=== PATIENT | female | born 1995 | race Caucasian/White ===

== ENCOUNTER 2024-12-17 17:26 | Emergency (ER) | payer OTHER, SELFPAY ==
--- NOTE | 2024-12-17 17:34 | ERPHSYRPT ---
- History of Present Illness Time Seen by Provider: 12/17/24 17:33 Source: patient, family Exam Limitations: no limitations Physician History: This is a 28-year-old white female patient arrives by private vehicle accompanied by the patient's mother secondary to concern of lateral right upper leg infection/abscess. Patient noticed redness on 12/12/2024. It had increased in size and pain. Therefore, patient went to see her primary care provider on 12/16/2024. The patient was placed on doxycycline. Patient stated that she did try to squeeze this area and did get pus out yesterday. However, today there is more tenderness and redness that are outside the line that was drawn around the area of cellulitis. The patient has a history of migraine headaches. Today, she took plain Tylenol at 10 AM and her antibiotic at 10:30 AM. Patient is allergic to Rocephin. Method of Injury: other (No known injury) Quality: sharpness Severity of Pain-Max: moderate Severity of Pain-Current: moderate Lower Extremities Pain: leg: right (Lateral aspect right thigh mid level) Modifying Factors: Improves With: movement (Worsens pain), other (Pain worsened with palpation) Associated Symptoms: none Allergies/Adverse Reactions: ceftriaxone sodium [From Rocephin] Allergy (Verified 12/17/24 17:32) Home Medications: Albuterol Sulfate [Albuterol Sulfate Hfa] 2 inh PO Q46H 12/17/24 [History] Budesonide/Formoterol Fumarate [Symbicort 160-4.5 Mcg Inhaler] 2 inh PO DAILY 12/17/24 [History] Hx Tetanus, Diphtheria Vaccination/Date Given: No Hx Influenza Vaccination/Date Given: Yes Hx Pneumococcal Vaccination/Date Given: No Travel Risk - International Travel Have you traveled outside of the country in past 3 weeks: No - Emerging Infectious Disease Are you exhibiting symptoms associated with any current EIDs: No - Review of Systems Constitutional: No Symptoms Eyes: No Symptoms Ears, Nose, & Throat: No Symptoms Respiratory: No Symptoms Cardiac: No Symptoms Abdominal/Gastrointestinal: No Symptoms Genitourinary Symptoms: No Symptoms Musculoskeletal: No Symptoms Skin: Cellulitis (Lateral right thigh in the area of tenderness) Neurological: No Symptoms Psychological: No Symptoms Endocrine: No Symptoms Hematologic/Lymphatic: No Symptoms Immunological/Allergic: No Symptoms All Other Systems: Reviewed and Negative - Past Medical History Pertinent Past Medical History: Yes Neurological History: No Pertinent History ENT History: No Pertinent History, Other Cardiac History: No Pertinent History Respiratory History: No Pertinent History, Other Endocrine Medical History: No Pertinent History Musculoskeletal History: No Pertinent History GI Medical History: No Pertinent History Female Reproductive Disorders: Other Other Medical History: EAR PROBLEMS (tubes) OVARIAN CYSTS - Past Surgical History Past Surgical History: No Neuro Surgical History: No Pertinent History Cardiac: No Pertinent History Gastrointestinal: No Pertinent History Genitourinary: No Pertinent History Musculoskeletal: No Pertinent History Female Surgical History: No Pertinent History Other Surgical History: T/A. NASALcaud. CYST FROM AXILLA (right) - Female History Hx Last Menstrual Period: 04/2014 - Social History Drug Use: none - Nursing Vital Signs Nursing Vital Signs: Initial Vital Signs Temperature 99 F 12/17/24 17:35 Pulse Rate 90 12/17/24 17:35 Respiratory Rate 24 12/17/24 17:35 Blood Pressure 99/83 12/17/24 17:35 Pain Scale Pain Intensity 8 - Physical Exam General Appearance: no apparent distress, alert, anxiety Eyes, Ears, Nose, Throat Exam: normal ENT inspection, moist mucous membranes Neck Exam: normal inspection, non-tender, supple, full range of motion Cardiovascular/Respiratory Exam: chest non-tender, no respiratory distress Gastrointestinal/Abdominal Exam: non-tender Back Exam: normal inspection, normal range of motion, No CVA tenderness, No vertebral tenderness Hips Exam: bilateral: non-tender, normal inspection, normal range of motion, no evidence of injury Legs Exam: right leg: soft tissue tenderness (Lateral right mid thigh with cellulitis), other (Pain, cellulitis and induration right lateral mid level thigh), left leg: non-tender, normal inspection, normal range of motion, no evidence of injury Knees Exam: bilateral knee: non-tender, normal inspection, normal range of motion, no evidence of injury Ankle Exam: bilateral ankle: non-tender, normal inspection, normal range of motion, no evidence of injury Foot Exam: bilateral foot: non-tender, normal inspection, normal range of motion, no evidence of injury Neuro/Tendon Exam: normal sensation, normal motor functions, normal tendon functions Mental Status Exam: alert, oriented x 3, cooperative Skin Exam: other (Cellulitis with indurated tissue lateral aspect right thigh at approximately the mid level. Underlying abscess likely) SpO2 Interpretation: normal O2 Delivery: Room Air Procedures - Incision and Drainage Time of Procedure: 18:20 Site: Right lateral thigh at the mid level Anesthesia: 1% Lidocaine (7 cc) cc's of anesthesia: other (7) Blade Size: 15 I & D Procedure: betadine prep, culture obtained, irrigated with normal saline, gauze wick placed Results: moderate amount pus - Course Nursing assessment & vital signs reviewed: Yes - Progress Progress: improved, pain not gone completely Progress Note: 12/17/24 18:39 My medical decision making and the assignment of low complexity to this patient's medical issue today is based on review of the patient's past medical history, review the patient's medication list, reviewed patient drug allergy list, history present illness and physical findings on examination. The workup in this patient includes incision and drainage of this area of cellulitis and abscess with culture of the underlying fluid. Differential diagnosis includes but is not limited to cellulitis, indurated tissue, abscess Counseled pt/family regarding: diagnosis, need for follow-up Medical Desision Making - Independent Historian Additional History obtained from: Mother - Diagnostic Testing Diagnostic test were ordered, analyzed, and reviewed by me: Yes - Risk of complications The pt has a mod risk of morbidity or mortality based on: Need for prescription drug management - Departure Departure Disposition: Home Clinical Impression: Abscess of right thigh Condition: Stable Critical Care Time: No Referrals: IRENE ERIC JR [Primary Care Provider] - Follow up/PCP as directed Additional Instructions: Tonight, remove the top dressing then the packing gauze and flushed the site with soapy water. Blot dry or use a hair mixer and then repack as instructed with plain packing gauze. Cover with bandage. Take your antibiotics as prescribed and pain medicine. Return tomorrow, 12/18/2024, for reevaluation. Prescriptions: Hydrocodone/APAP 5/325 [Ridott 5/325 mg] 1 each PO Q6H PRN PRN #10 tablet MDD 4 PRN Reason: Pain
[2024-12-17 18:05] VITALS: TEMP 99
[2024-12-17] MEDS: XYLOCAINE 1% HCL 20 ML MDV IJ ONE (18:25)
[2024-12-17] MEDS ORDERED: XYLOCAINE 1% HCL 20 ML MDV ONE (18:46)
[2024-12-17] MEDS ORDERED: NORCO 5/325 MG ONE (18:49)
[2024-12-17] MEDS: NORCO 5/325 MG PO ONE (18:51)
[2024-12-17 19:12] VITALS: BP 112/61; PULSE 96; RESP 22; O2SAT 98
== END 2024-12-17 19:20 | disposition home or self-care (01) ==
LOC: ED 17:26
DX: L02.415 Cutaneous abscess of right lower limb (principal); Z79.891 Long term (current) use of opiate analgesic; Z79.899 Other long term (current) drug therapy
CPT/HCPCS: 10060; 87070; 87077; 87186; 96372; 99283; A9270-GY

== ENCOUNTER 2024-12-18 16:57 | Emergency (ER) | payer OTHER ==
--- NOTE | 2024-12-18 17:04 | ERPHSYRPT ---
- History of Present Illness Time Seen by Provider: 12/18/24 17:03 Source: patient, family Exam Limitations: no limitations Physician History: This is a 28-year-old overweight white female who presents to the emergency department at the request of me who saw this patient 24 hours ago. She had a right lateral thigh abscess which was incised and drained. She is supposed to be doing dressing changes twice a day but only did once today and we will remove the dressing to evaluate the wound. Patient states there is not as much pain as she had before we performed the incision and drainage yesterday. Patient is on doxycycline. She has not had any fevers. Timing/Duration: day(s) (Overall) Quality: painful Severity: mild Location: extremities (Right lateral mid thigh) Associated Symptoms: denies symptoms Allergies/Adverse Reactions: ceftriaxone sodium [From Rocephin] Allergy (Verified 12/18/24 17:04) Home Medications: Albuterol Sulfate [Albuterol Sulfate Hfa] 2 inh PO Q46H 12/17/24 [History] Budesonide/Formoterol Fumarate [Symbicort 160-4.5 Mcg Inhaler] 2 inh PO DAILY 12/17/24 [History] Doxycycline Hyclate 100 mg [Vibramycin 100 MG] 100 mg PO BID 12/18/24 [History] Hx Tetanus, Diphtheria Vaccination/Date Given: No Hx Influenza Vaccination/Date Given: Yes Hx Pneumococcal Vaccination/Date Given: No Travel Risk - International Travel Have you traveled outside of the country in past 3 weeks: No - Emerging Infectious Disease Are you exhibiting symptoms associated with any current EIDs: No - Review of Systems Constitutional: No Symptoms Eyes: No Symptoms Ears, Nose, & Throat: No Symptoms Respiratory: No Symptoms Cardiac: No Symptoms Abdominal/Gastrointestinal: No Symptoms Genitourinary Symptoms: No Symptoms Musculoskeletal: No Symptoms Skin: Other (Open incision and drainage site is draining) Neurological: No Symptoms Psychological: No Symptoms Endocrine: No Symptoms Hematologic/Lymphatic: No Symptoms Immunological/Allergic: No Symptoms All Other Systems: Reviewed and Negative - Past Medical History Pertinent Past Medical History: Yes Neurological History: No Pertinent History ENT History: No Pertinent History, Other Cardiac History: No Pertinent History Respiratory History: No Pertinent History, Other Endocrine Medical History: No Pertinent History Musculoskeletal History: No Pertinent History GI Medical History: No Pertinent History Female Reproductive Disorders: Other Other Medical History: EAR PROBLEMS (tubes) OVARIAN CYSTS - Past Surgical History Past Surgical History: No Neuro Surgical History: No Pertinent History Cardiac: No Pertinent History Gastrointestinal: No Pertinent History Genitourinary: No Pertinent History Musculoskeletal: No Pertinent History Female Surgical History: No Pertinent History Other Surgical History: T/A. NASALcaud. CYST FROM AXILLA (right) - Female History Hx Last Menstrual Period: 04/2014 - Social History Drug Use: none - Social Determinants of Health Will the patient participate in the screening: Yes Do you worry about a steady place to live?: No In the past 12 months,have you had to go without utilities?: No Transportation Issues: No Has anyone in your support network made you feel unsafe?: No Have you or anyone in your house had to go w/o enough food: No - Nursing Vital Signs Nursing Vital Signs: Initial Vital Signs Temperature 98.4 F 12/18/24 17:10 Pulse Rate 78 12/18/24 17:10 Respiratory Rate 18 12/18/24 17:10 Blood Pressure 114/72 12/18/24 17:10 O2 Sat by Pulse Oximetry 97 12/18/24 17:10 Pain Scale Pain Intensity 4 - Physical Exam General Appearance: no apparent distress, alert Eye Exam: PERRL/EOMI Ears, Nose, Throat Exam: normal ENT inspection, moist mucous membranes Neck Exam: normal inspection, non-tender, supple, full range of motion Respiratory Exam: airway intact, No chest tenderness, No respiratory distress Gastrointestinal/Abdomen Exam: No tenderness Extremity Exam: normal range of motion, pelvis stable, other (The incision and drainage site of the right lateral thigh midlevel has significantly less induration present. There is no odor. There is localized redness around the open incision and drainage site.) Lymphatic Exam: No adenopathy SpO2 Interpretation: normal O2 Delivery: Room Air - Course Nursing assessment & vital signs reviewed: Yes - Progress Progress: unchanged Progress Note: 12/18/24 17:34 My medical decision making and the assignment of low complexity to this patient's medical issue today is based on review of the patient's past medical history, review of the patient's medication list, reviewed patient drug allergy list, history present illness and physical findings on examination. I did check the wound culture and sensitivities. However, the results are still pending. Patient is to return to the emergency department on 12/20/2024 for repeat wound check. Counseled pt/family regarding: diagnosis, need for follow-up Medical Desision Making - Independent Historian Additional History obtained from: Mother - Diagnostic Testing Diagnostic test were ordered, analyzed, and reviewed by me: Yes - Risk of complications Low Risk: Low risk of morbidity from additional dx testing or treatment - Departure Departure Disposition: Home Clinical Impression: Visit for wound check Condition: Stable Critical Care Time: No Referrals: IRENE ERIC JR [Primary Care Provider] - Follow up/PCP as directed Additional Instructions: Continue the dressing changes twice a day as discussed. Make sure that you get the showerhead and soapy water into the wound site. Take the packing gauze out before you shower this area. Blot dry or use a hairspring studder and then put the packing gauze on and cover with bandage as discussed. Take your antibiotics as prescribed. Use Tylenol and ibuprofen for pain control. Return to the emergency department on 12/20/2024. Return sooner if your concerns or your condition changes.
[2024-12-18 17:15] VITALS: RESP 18; TEMP 98.4
[2024-12-18 17:45] VITALS: BP 120/62; PULSE 76; O2SAT 99
== END 2024-12-18 17:40 | disposition home or self-care (01) ==
LOC: ED 16:57
DX: Z48.00 Encounter for change or removal of nonsurgical wound dressing (principal); L02.415 Cutaneous abscess of right lower limb; Z79.899 Other long term (current) drug therapy
CPT/HCPCS: 99281; 99282

== ENCOUNTER 2024-12-20 11:04 | Emergency (ER) | payer OTHER ==
[2024-12-20 11:47] VITALS: BP 110/60; TEMP 97.3; O2SAT 98
--- NOTE | 2024-12-20 12:11 | ERPHSYRPT ---
- History of Present Illness Time Seen by Provider: 12/20/24 11:22 Source: patient, family Exam Limitations: no limitations Patient Subjective Stated Complaint: Pt had abscess/spider bite that ER physician I&D on sunday12/17/24. Pt was instructed to come today for recheck. Triage Nursing Assessment: Pt alert and oriented x3. Respirations easy/nonlabored. Skin w/p/d. Ambulated to ED cot with slow steady limp. Right upper outer thigh red from bandaging, swollen, red/purple at incision site. Dressing had yellow drainage. Physician History: 28-year-old female with I&D on 12/17 right thigh is here for wound recheck. Patient has no discharge. Noted some swelling but no erythema redness. No fever or chills. I have removed packing with good granulation tissue. No sloughing or discharge. Minimal bleeding. Thoroughly cleaned and repacking done. Recommended packing twice a day, keeping it clean and continue with antibiotics. Reviewed the results of wound culture and patient is on Doxy which is sensitive and recommended continue with that. Discussed signs symptoms of worsening needing return to ER which she seems understanding. Stable for discharge. Allergies/Adverse Reactions: ceftriaxone sodium [From Rocephin] Allergy (Verified 12/20/24 11:34) Home Medications: Albuterol Sulfate [Albuterol Sulfate Hfa] 2 inh PO Q46H 12/17/24 [History] Budesonide/Formoterol Fumarate [Symbicort 160-4.5 Mcg Inhaler] 2 inh PO DAILY 12/17/24 [History] Doxycycline Hyclate 100 mg [Vibramycin 100 MG] 100 mg PO BID 12/18/24 [History] Hx Tetanus, Diphtheria Vaccination/Date Given: No Hx Influenza Vaccination/Date Given: Yes Hx Pneumococcal Vaccination/Date Given: No Travel Risk - International Travel Have you traveled outside of the country in past 3 weeks: No - Emerging Infectious Disease Are you exhibiting symptoms associated with any current EIDs: No Comment: abscess to right thigh packed and dressed. Patient reports drainage. - Review of Systems Constitutional: No Symptoms Ears, Nose, & Throat: No Symptoms Respiratory: No Symptoms Cardiac: No Symptoms Abdominal/Gastrointestinal: No Symptoms Musculoskeletal: Injury Skin: Skin Lesions Neurological: No Symptoms Endocrine: No Symptoms - Past Medical History Pertinent Past Medical History: Yes Neurological History: No Pertinent History ENT History: No Pertinent History, Other Cardiac History: No Pertinent History Respiratory History: No Pertinent History, Other Endocrine Medical History: No Pertinent History Musculoskeletal History: No Pertinent History GI Medical History: No Pertinent History Psycho-Social History: Anxiety, Depression Female Reproductive Disorders: Other Other Medical History: EAR PROBLEMS (tubes) OVARIAN CYSTS - Past Surgical History Past Surgical History: No Neuro Surgical History: No Pertinent History Cardiac: No Pertinent History Gastrointestinal: No Pertinent History Genitourinary: No Pertinent History Musculoskeletal: No Pertinent History Female Surgical History: No Pertinent History Other Surgical History: T/A. NASALcaud. CYST FROM AXILLA (right) - Female History Hx Last Menstrual Period: 6 months ago Hx Now: No - Social History Smoking Status: Never smoker Exposure to second hand smoke: Yes Drug Use: none - Social Determinants of Health Will the patient participate in the screening: Declined to provide - Nursing Vital Signs Nursing Vital Signs: Initial Vital Signs Temperature 97.3 F 12/20/24 11:34 Pulse Rate 64 12/20/24 11:34 Respiratory Rate 16 12/20/24 11:34 Blood Pressure 110/60 12/20/24 11:34 O2 Sat by Pulse Oximetry 98 12/20/24 11:34 Pain Scale Pain Intensity 5 - Physical Exam General Appearance: no apparent distress Neck Exam: normal inspection, full range of motion Respiratory Exam: normal breath sounds, lungs clear Cardiovascular Exam: regular rate/rhythm, normal heart sounds Extremity Exam: normal inspection, normal range of motion, other (Right lateral thigh I&D. No erythema induration around. No increased temperature. No discharge.) Neurologic Exam: alert, oriented x 3, cooperative Skin Exam: normal color SpO2 Interpretation: normal SpO2: 98 O2 Delivery: Room Air - Progress Progress: improved Progress Note: 12/20/24 12:10 28-year-old female with I&D on 12/17 right thigh is here for wound recheck. Patient has no discharge. Noted some swelling but no erythema redness. No fever or chills. I have removed packing with good granulation tissue. No sloughing or discharge. Minimal bleeding. Thoroughly cleaned and repacking done. Recommended packing twice a day, keeping it clean and continue with antibiotics. Reviewed the results of wound culture and patient is on Doxy which is sensitive and recommended continue with that. Discussed signs symptoms of worsening needing return to ER which she seems understanding. Stable for discharge. Counseled pt/family regarding: diagnosis, need for follow-up Medical Desision Making - Independent Historian Additional History obtained from: Mother - Diagnostic Testing Diagnostic test were ordered, analyzed, and reviewed by me: No - Departure Departure Disposition: Home Clinical Impression: Wound check, abscess Condition: Stable Critical Care Time: No Referrals: IRENE ERIC JR [Primary Care Provider] - Follow up with PCP 1 day Instructions: Wound Care (DC) Additional Instructions: Dressing changes/packing twice a day. Keep it clean and dry. Continue with antibiotics. Follow-up with your primary care for reevaluation. Return to ER for increasing swelling redness discharge or if develop fever chills etc.
[2024-12-20 12:15] VITALS: PULSE 60; RESP 15
== END 2024-12-20 12:19 | disposition home or self-care (01) ==
LOC: ED 11:04
DX: Z48.00 Encounter for change or removal of nonsurgical wound dressing (principal); L02.415 Cutaneous abscess of right lower limb; Z79.899 Other long term (current) drug therapy
CPT/HCPCS: 99281

== ENCOUNTER 2025-08-03 17:03 | Emergency (ER) | payer OTHER ==
--- NOTE | 2025-08-03 17:18 | ERPHSYRPT ---
- History of Present Illness Time Seen by Provider: 08/03/25 17:18 Source: patient, family Exam Limitations: no limitations Physician History: This is a 29-year-old white female patient who was brought to the emergency department by private vehicle with a complaint of laceration to left index finger. This occurred prior to arrival. Patient did put together a new hamper and per patient, the children in the home had broken it already and she was trying to fix it when she had her finger cut by metal. Patient's tetanus status is not up-to-date. There is no active bleeding on arrival to the emergency department. Patient has full function of her finger. Timing/Duration: today Quality: painful Severity: mild Location: hands (Left index finger palmar aspect) Associated Symptoms: denies symptoms Allergies/Adverse Reactions: ceftriaxone sodium [From Rocephin] Allergy (Verified 08/03/25 17:13) Home Medications: No Reportable Medications [No Reported Medications] 08/03/25 [History] Hx Tetanus, Diphtheria Vaccination/Date Given: No Hx Influenza Vaccination/Date Given: Yes Hx Pneumococcal Vaccination/Date Given: No Travel Risk - International Travel Have you traveled outside of the country in past 3 weeks: No - Emerging Infectious Disease Are you exhibiting symptoms associated with any current EIDs: No Comment: abscess to right thigh packed and dressed. Patient reports drainage. - Review of Systems Constitutional: No Symptoms Eyes: No Symptoms Ears, Nose, & Throat: No Symptoms Respiratory: No Symptoms Cardiac: No Symptoms Abdominal/Gastrointestinal: No Symptoms Genitourinary Symptoms: No Symptoms Musculoskeletal: No Symptoms Skin: Other (3 to 4 mm palmar aspect distal left index finger skin laceration) Neurological: No Symptoms Psychological: No Symptoms Endocrine: No Symptoms Hematologic/Lymphatic: No Symptoms Immunological/Allergic: No Symptoms All Other Systems: Reviewed and Negative - Past Medical History Pertinent Past Medical History: No Neurological History: No Pertinent History ENT History: No Pertinent History, Other Cardiac History: No Pertinent History Respiratory History: No Pertinent History, Other Endocrine Medical History: No Pertinent History Musculoskeletal History: No Pertinent History GI Medical History: No Pertinent History Psycho-Social History: Anxiety, Depression Female Reproductive Disorders: Other Other Medical History: EAR PROBLEMS (tubes) OVARIAN CYSTS - Past Surgical History Past Surgical History: Yes Neuro Surgical History: No Pertinent History Cardiac: No Pertinent History Gastrointestinal: Cholecystectomy Genitourinary: No Pertinent History Musculoskeletal: No Pertinent History Female Surgical History: No Pertinent History Other Surgical History: T/A. NASALcaud. CYST FROM AXILLA (right) - Female History Hx Last Menstrual Period: 6 months ago - Social History Smoking Status: Never smoker Exposure to second hand smoke: Yes Drug Use: none - Social Determinants of Health Will the patient participate in the screening: Declined to provide - Nursing Vital Signs Nursing Vital Signs: Initial Vital Signs Temperature 97.2 F 08/03/25 17:25 Pulse Rate 55 L 08/03/25 17:25 Respiratory Rate 18 08/03/25 17:25 Blood Pressure 110/72 08/03/25 17:25 O2 Sat by Pulse Oximetry 98 08/03/25 17:25 Pain Scale Pain Intensity 8 - Physical Exam General Appearance: no apparent distress, alert, anxiety Eye Exam: PERRL/EOMI, eyes nml inspection Ears, Nose, Throat Exam: normal ENT inspection, moist mucous membranes Neck Exam: normal inspection, non-tender, supple, full range of motion (I am not available all I so not available) Respiratory Exam: airway intact, No chest tenderness (Let me know though that we know you never know), No respiratory distress Gastrointestinal/Abdomen Exam: No tenderness Pelvic Exam: not done Rectal Exam: not done Back Exam: normal inspection, normal range of motion, No CVA tenderness, No vertebral tenderness Extremity Exam: normal range of motion, pelvis stable, lacerations (3 to 4 mm superficial skin laceration palmar aspect left index finger. No active bleeding), other (Tendons intact. Neurovascularly intact. No foreign body in the wound) Neurologic Exam: alert, oriented x 3, cooperative, senior consulting manager II-XII nml as tested, normal mood/affect, nml cerebellar function, nml station & gait, sensation nml Skin Exam: normal color, warm, dry, laceration (See above extremity) Lymphatic Exam: No adenopathy ( exam section) SpO2 Interpretation: normal O2 Delivery: Room Air Procedures - Laceration/Wound Repair Left Volar Finger Time of Procedure: 18:30 Wound Location: Left, hand (Index finger) Wound Length (cm): 0.4 Wound's Depth, Shape: superficial, linear Wound Explored: clean (Wound explored to the base in a bloodless field. No foreign body noted) Irrigated: Yes Hibiclens Prep: Yes Wound Repaired With: Steri-strips - Course Nursing assessment & vital signs reviewed: Yes - Progress Progress: improved Progress Note: 08/03/25 18:38 My medical decision making and the assignment of low complexity of this patient's medical issue today is based on review of the patient's past medical history, review the patient's medication list, reviewed patient drug allergy list, history present illness and physical findings on examination. The workup in this patient does not necessitate laboratory radiographic studies. Differential diagnosis includes skin laceration finger, skin abrasion finger, contusion finger Counseled pt/family regarding: diagnosis, need for follow-up Medical Desision Making - Independent Historian Additional History obtained from: Family - Diagnostic Testing Diagnostic test were ordered, analyzed, and reviewed by me: No - Risk of complications Low Risk: Low risk of morbidity from additional dx testing or treatment - Departure Departure Disposition: Home Clinical Impression: Laceration of left index finger Condition: Stable Critical Care Time: No Referrals: IRENE ERIC JR [NON-STAFF PHY W/O PRIVILEGES, ORTHOPEDICS] - Follow up/PCP as directed Additional Instructions: Keep the Steri-Strips in place until they fall off on their own. Keep the site dry for 24 hours. As the Steri-Strips curl up, trim them with scissors
[2025-08-03 17:25] VITALS: TEMP 97.2
[2025-08-03] MEDS ORDERED: Adacel Vial IM ONE (18:36)
[2025-08-03] MEDS: Adacel Vial IM ONE (18:38)
[2025-08-03 18:48] VITALS: BP 113/66; PULSE 70; RESP 18; O2SAT 96
== END 2025-08-03 18:48 | disposition home or self-care (01) ==
LOC: ED 17:03
DX: S61.211A Laceration without foreign body of left index finger without damage to nail, initial encounter (principal); W45.8XXA Other foreign body or object entering through skin, initial encounter; Z23 Encounter for immunization

== ENCOUNTER 2025-09-07 18:25 | Emergency (ER) | payer OTHER ==
--- NOTE | 2025-09-07 19:17 | ERPHSYRPT ---
- History of Present Illness Time Seen by Provider: 09/07/25 19:17 Source: patient, family Exam Limitations: no limitations Physician History: This is an obese 29-year-old white female patient arrives per private vehicle and is a patient of nurse practitioner Lorena with the complaint of left foot and ankle pain after falling and twisting her left foot and ankle while taking a heavy basket of close down steps. Patient can bear weight but hurts to do so. No other complaints of pain or injury sites Occurred: this afternoon Quality: constant, aching Severity of Pain-Max: mild (To moderate) Severity of Pain-Current: mild (To moderate) Lower Extremities Pain: foot: left, ankle: left Modifying Factors: Improves With: movement Associated Symptoms: other (Hurts to bear weight but can bear weight) Allergies/Adverse Reactions: ceftriaxone sodium [From Rocephin] Allergy (Verified 08/03/25 17:13) shellfish derived Allergy (Verified 09/07/25 19:21) Home Medications: Clonidine HCl 0.1 mg [Clonidine 0.1 mg Tablet] 0.1 mg PO HS 09/07/25 [History] Fluoxetine HCl 20 mg PO DAILY 09/07/25 [History] hydrOXYzine HCL [Hydroxyzine HCl] 25 mg PO TID PRN 09/07/25 [History] Hx Tetanus, Diphtheria Vaccination/Date Given: No Hx Influenza Vaccination/Date Given: Yes Hx Pneumococcal Vaccination/Date Given: No Travel Risk - International Travel Have you traveled outside of the country in past 3 weeks: No - Emerging Infectious Disease Are you exhibiting symptoms associated with any current EIDs: No Comment: abscess to right thigh packed and dressed. Patient reports drainage. - Review of Systems Constitutional: No Symptoms Eyes: No Symptoms Ears, Nose, & Throat: No Symptoms Respiratory: No Symptoms Cardiac: No Symptoms Abdominal/Gastrointestinal: No Symptoms Genitourinary Symptoms: No Symptoms Musculoskeletal: Fall, Injury (Left foot and ankle) Skin: No Symptoms Neurological: No Symptoms Psychological: No Symptoms Endocrine: No Symptoms Hematologic/Lymphatic: No Symptoms Immunological/Allergic: No Symptoms All Other Systems: Reviewed and Negative - Past Medical History Pertinent Past Medical History: No Neurological History: No Pertinent History ENT History: No Pertinent History, Other Cardiac History: No Pertinent History Respiratory History: No Pertinent History, Other Endocrine Medical History: No Pertinent History Musculoskeletal History: No Pertinent History GI Medical History: No Pertinent History Psycho-Social History: Anxiety, Depression Female Reproductive Disorders: Other Other Medical History: EAR PROBLEMS (tubes) OVARIAN CYSTS - Past Surgical History Past Surgical History: Yes Neuro Surgical History: No Pertinent History Cardiac: No Pertinent History Gastrointestinal: Cholecystectomy Genitourinary: No Pertinent History Musculoskeletal: No Pertinent History Female Surgical History: No Pertinent History Other Surgical History: T/A. NASALcaud. CYST FROM AXILLA (right) - Female History Hx Last Menstrual Period: 6 months ago - Social History Smoking Status: Never smoker Exposure to second hand smoke: Yes Drug Use: none - Social Determinants of Health Will the patient participate in the screening: Declined to provide - Nursing Vital Signs Nursing Vital Signs: Initial Vital Signs Temperature 99.1 F 09/07/25 19:14 Pulse Rate 57 L 09/07/25 19:14 Respiratory Rate 18 09/07/25 19:14 Blood Pressure 130/72 09/07/25 19:14 O2 Sat by Pulse Oximetry 98 09/07/25 19:14 Pain Scale Pain Intensity 8 - Physical Exam General Appearance: no apparent distress, alert, anxiety Eyes, Ears, Nose, Throat Exam: normal ENT inspection, moist mucous membranes Neck Exam: normal inspection, non-tender, supple, full range of motion Cardiovascular/Respiratory Exam: chest non-tender, no respiratory distress Gastrointestinal/Abdominal Exam: non-tender Back Exam: normal inspection, normal range of motion, No CVA tenderness Hips Exam: bilateral: non-tender, normal inspection, normal range of motion, no evidence of injury Legs Exam: bilateral leg: non-tender, normal inspection, normal range of motion, no evidence of injury Knees Exam: bilateral knee: non-tender, normal inspection, normal range of motion, no evidence of injury Ankle Exam: right ankle: non-tender, normal inspection, no evidence of injury, left ankle: normal range of motion, bone tenderness, soft tissue tenderness, swelling Foot Exam: right foot: non-tender, normal inspection, no evidence of injury, left foot: normal range of motion, bone tenderness, soft tissue tenderness, swelling Neuro/Tendon Exam: normal sensation, normal motor functions, normal tendon functions, responds to pain, no evidence tendon injury Mental Status Exam: alert, oriented x 3, cooperative Skin Exam: normal color, warm, dry SpO2 Interpretation: normal O2 Delivery: Room Air - Course Nursing assessment & vital signs reviewed: Yes Ordered Tests: Active Orders 24 hr Category Date Time Status Jas Bandage Application -[facility] STAT Care 09/07/25 20:03 Active Crutches STAT Care 09/07/25 20:03 Active ANKLE (3 VIEWS) Stat Exams 09/07/25 19:22 Taken FOOT (MINIMUM 3 VIEWS) Stat Exams 09/07/25 19:22 Taken Medication Summary Discontinued Medications Generic Name Dose Route Start Last Admin Trade Name Steve PRN Reason Stop Dose Admin Ibuprofen 600 mg 09/07/25 20:02 Ibuprofen 600 Mg Tablet PO 09/07/25 20:03 STAT ONE Oxycodone/Acetaminophen 1 tab 09/07/25 20:02 Oxycodone Hcl/Apap 5 Mg/325 Mg Tablet PO 09/07/25 20:03 STAT STA - Progress Progress: unchanged, pain not gone completely Progress Note: 09/07/25 20:08 My medical decision making and the assignment of low complexity of this patient's medical issue today is based on review of the patient's past medical history, reviewed patient's medication list, reviewed patient drug allergy list, history present illness and physical findings on examination. The workup in this patient includes x-ray the left foot and left ankle. Differential diagnosis includes but is not limited to sprain left ankle, sprain left foot, fracture left ankle, fracture left foot, dislocated left ankle, dislocated left foot I interpreted the preliminary reports of the following x-ray studies: Left ankle x-ray shows no acute fracture or dislocation. Left foot x-ray shows no acute fracture or dislocation Counseled pt/family regarding: diagnosis, need for follow-up, rad results Medical Desision Making - Independent Historian Additional History obtained from: Mother - Diagnostic Testing Diagnostic test were ordered, analyzed, and reviewed by me: Yes Radiological Interpretation: Interpreted by me - Risk of complications Low Risk: Low risk of morbidity from additional dx testing or treatment - Departure Departure Disposition: Home Clinical Impression: Left ankle sprain, Sprain of left foot Condition: Stable Critical Care Time: No Referrals: FARSHAD LONGORIA NP [NON-STAFF PHY W/O PRIVILEGES, FAMILY PRACTICE] - Follow up/PCP as directed Additional Instructions: Ice pack to the tender areas 3 times a day for the next 3 days. Use Tylenol and ibuprofen for pain control. Weightbearing as tolerated. Use crutches to help stabilize. Wear the jas wrap to help with compression. When not ambulating, elevate the left foot and ankle above the level of your heart. Call your primary care provider tomorrow, 09/08/2025, to make arrangements for follow-up appointment for further evaluation and management.
[2025-09-07 19:20] VITALS: TEMP 99.1; O2SAT 98
[2025-09-07] MEDS ORDERED: PERCOCET TABLET 5/325MG ONE (20:07)
[2025-09-07] MEDS ORDERED: MOTRIN 600 MG ONE (20:07)
[2025-09-07] MEDS: PERCOCET TABLET 5/325MG PO STA ×2 (20:13→20:14)
[2025-09-07] MEDS: MOTRIN 600 MG PO ONE (20:15)
[2025-09-07 20:27] VITALS: PULSE 54
[2025-09-07 20:34] VITALS: BP 113/60; RESP 18
--- NOTE | 2025-09-08 08:53 | XRAY ---
Indication: Pain and swelling following fall. Comparison: None 3 view left ankle obtained. No bony, articular, or soft tissue abnormalities.
--- NOTE | 2025-09-08 08:53 | XRAY ---
Indication: Pain and swelling following fall. Comparison: None 3 nonweightbearing views left foot obtained. No bony, articular, or soft tissue abnormalities.
== END 2025-09-07 20:40 | disposition home or self-care (01) ==
LOC: ED 18:25
DX: S93.402A Sprain of unspecified ligament of left ankle, initial encounter (principal); S93.602A Unspecified sprain of left foot, initial encounter; W10.8XXA Fall (on) (from) other stairs and steps, initial encounter; Z79.899 Other long term (current) drug therapy